=== PATIENT | male | born 1960 | race African-American/Black ===

== ENCOUNTER 2017-02-14 09:49 | Emergency (ER) | payer MEDICAID, OTHER ==
[2017-02-14] MEDS ORDERED: cloNIDine HCl 0.1 MG TAB ONE (10:15)
[2017-02-14 10:32] LABS: #Basophils 0.1 thou/uL (0.0-0.2); #Eosinphils 0.1 thou/uL (0.0-0.7); #Lymphocytes 1.1 thou/uL (1.20-3.40); #Monocytes 0.5 thou/uL (0.11-0.59); #Neutrophils 4.7 thou/uL (1.40-6.50); %Basophils 1.5 % (0.0-1.0); %Eosinophils 0.9 % (0.0-10.0); %Lymphocytes 16.4 % (21.0-51.0); %Monocytes 8.1 % (0.0-10.0); %Neutrophils 73.1 % (42.0-75.0); Hemoglobin 15.3 g/dL (14.0-18.0); Mean Corpuscular HGB CONC 31.7 g/dL (32.0-36.0); Mean Corpuscular Volume 91.3 fl (80.0-94.0); Mean Platelet Volume 9.9 fL (7.4-10.4); Platelet Count 95 thou/uL (130-400); RBC Distribution Width 14.4 % (11.5-14.5); Red Blood Cell (RBC) Count 5.26 mill/uL (4.70-6.10); White Blood Cell (WBC) Count 6.4 thou/uL (4.8-10.8)
[2017-02-14 10:33] LABS: ALT (SGPT) 111 U/L (8-55); AST (SGOT) 133 U/L (5-34); Albumin 4.6 g/dL (3.5-5.0); Alcohol Less than 10 mg/dL (Less than 10); Alkaline Phosphatase 83 U/L (40-150); Anion Gap 16 mmol/L (10-20); BUN (Urea Nitrogen) 8 mg/dL (8.4-25.7); Bilirubin, Total 0.6 mg/dL (0.2-1.2); Calc. Creatinine Clearance 0 mL/min (70-130); Calcium 9.7 mg/dL (7.8-10.44); Carbon Dioxide 28 mmol/L (22-29); Chloride 101 mmol/L (98-107); Estimated GFR-MDRD Greater than 90; Glucose 87 mg/dL (70-105); Protein, Total 7.6 g/dL (6.0-8.3); Sodium 141 mmol/L (136-145)
[2017-02-14 10:34] LABS: CKMB 3.3 ng/mL (0-6.6); Troponin I Less than 0.010 ng/mL (< 0.028)
[2017-02-14 10:43] LABS: PLT Morphology Comment Appears Decreased
== END 2017-02-14 11:20 | disposition home or self-care (01) ==
LOC: BURERS 09:49
DX: F10.10 Alcohol abuse, uncomplicated (principal); R25.1 Tremor, unspecified; I10 Essential (primary) hypertension; F32.9 Major depressive disorder, single episode, unspecified; F17.210 Nicotine dependence, cigarettes, uncomplicated
CPT/HCPCS: 80053; 80307; 82553; 84484; 85025; 93005

== ENCOUNTER 2020-10-07 09:41 | Outpatient (CLI) | payer OTHER ==
--- NOTE | 2020-10-07 11:48 | RAD ---
LUMBAR SPINE 3 VIEWS: DATE: 10/07/2020. FINDINGS: No fracture was seen. There are extensive degenerative changes throughout the lumbar spine with very prominent osteophytes. Disk space narrowing is present at L4-L5 and L5-S1 with sclerosis and irregu larity of the end plates. Some facet arthritis is indicated. L5 vertebra is somewhat sclerotic, but I believe it is just on the basis of degenerative change. The SI joints appear normal. The aorta a nd proximal iliac arteries are densely calcified. Some calcifications are seen over the kidneys, veronica ecially on the right. I cannot tell if these are calculi or calcified vessels. IMPRESSION: 1. Very extensive degenerative changes of the lumbar spine, particularly in the lower levels. MRI w ould be best at determining if there was any impingement. 2. Severe arteriosclerosis. POS: HOME
== END 2020-10-07 09:42 | disposition home or self-care (01) ==
LOC: BURRAD 09:41
PROVIDERS: ATTEND Physician Assistant
DX: R20.2 Paresthesia of skin (principal); M47.816 Spondylosis without myelopathy or radiculopathy, lumbar region; I70.0 Atherosclerosis of aorta; N28.89 Other specified disorders of kidney and ureter
CPT/HCPCS: 72100

== ENCOUNTER 2021-01-03 14:35 | Emergency (ER) | payer OTHER ==
[2021-01-03] MEDS ORDERED: Iopamidol 370 76% 100 ML VIAL ONE (14:42)
[2021-01-03 15:01] LABS: INR-International Normal Ratio 0.9; PTT 24.3 sec (22.9-36.1); Prothrombin Time 12.2 sec (12.0-14.7)
[2021-01-03 15:11] LABS: ALT (SGPT) 16 U/L (8-55); AST (SGOT) 15 U/L (5-34); Albumin 4.9 g/dL (3.5-5.0); Alkaline Phosphatase 103 U/L (40-110); Anion Gap 18 mmol/L (10-20); BUN (Urea Nitrogen) 19 mg/dL (8.4-25.7); Bilirubin, Total 0.6 mg/dL (0.2-1.2); CK (CPK) 358 U/L (30-200); Calc. Creatinine Clearance 0 mL/min (70-130); Calcium 9.9 mg/dL (7.8-10.44); Carbon Dioxide 30 mmol/L (22-29); Chloride 96 mmol/L (98-107); Globulin 3.6 g/dL (2.4-3.5); Glucose 110 mg/dL (70-105); Potassium 3.8 mmol/L (3.5-5.1); Protein, Total 8.5 g/dL (6.0-8.3); Sodium 140 mmol/L (136-145)
[2021-01-03 15:12] LABS: #Basophils 0.2 thou/uL (0.0-0.2); #Monocytes 1.2 thou/uL (0.11-0.59); #Neutrophils 11.1 thou/uL (1.40-6.50); %Eosinophils 0.1 % (0.0-10.0); %Lymphocytes 19.3 % (21.0-51.0); %Monocytes 7.7 % (0.0-10.0); %Neutrophils 71.9 % (42.0-75.0); Hemoglobin 17.7 g/dL (14.0-18.0); Mean Corpuscular HGB CONC 31.1 g/dL (32.0-36.0); Mean Platelet Volume 9.1 fL (7.4-10.4); Platelet Count 234 thou/uL (130-400); RBC Distribution Width 12.8 % (11.5-14.5); Red Blood Cell (RBC) Count 6.53 mill/uL (4.70-6.10); White Blood Cell (WBC) Count 15.5 thou/uL (4.8-10.8)
[2021-01-03 15:15] LABS: Base Excess-Venous 3.6 mmol/L (-2.0 to 3.0); Bicarbonate (HCO3v) 31.9 mmol/L (22.0-28.0); CO2 Tension (PvCO2) 58.1 mmHg (42.0-51.0); Calcium, Ionized 1.08 mmol/L (1.15-1.33); Chloride 98 mmol/L (98-107); Hemoglobin - Calc 20.4 g/dL (14.0-18.0); Potassium 4.1 mmol/L (3.5-5.1); Sodium 138 mmol/L (138-145); T. Carbon Dioxide 33.6 mmol/L (22.0-28.0)
[2021-01-03 15:25] LABS: Acetaminophen Less than 6.0 mcg/mL (10.0-30.0); Alcohol Less than 10 mg/dL (Less than 10); Salicylate Less than 8.0 mg/dL (15.0-30.0)
[2021-01-03] MEDS ORDERED: Aspirin 300 MG Suppository ONE (15:48)
== END 2021-01-03 16:15 | disposition short-term general hospital (02) ==
LOC: BURERS 14:35
DX: I63.9 Cerebral infarction, unspecified (principal); R47.01 Aphasia; R29.810 Facial weakness; I10 Essential (primary) hypertension; F17.210 Nicotine dependence, cigarettes, uncomplicated
CPT/HCPCS: 36416; 70450; 70496; 70498; 71045; 80053; 80307; 82330; 82550; 82803; 84443; 84484; 85025; 85610; 85730; 93005; Q9967

== ENCOUNTER 2025-07-28 08:14 | Emergency (ER) | payer MEDICAID ==
[2025-07-28 09:41] LABS: ALT (SGPT) 29 U/L (Less than 45); AST (SGOT) 22 U/L (11-34); Albumin 3.9 g/dL (3.1-4.5); Alkaline Phosphatase 90 U/L (40-110); Anion Gap 15 mmol/L (10-20); BUN (Urea Nitrogen) 9 mg/dL (8.4-25.7); Bilirubin, Total 0.6 mg/dL (0.3-1.2); Calc. Creatinine Clearance 0 mL/min (70-130); Calcium 9.3 mg/dL (7.8-10.44); Carbon Dioxide 28 mmol/L (23-31); Chloride 103 mmol/L (98-107); Globulin 3.0 g/dL (2.4-3.5); Glucose 134 mg/dL (80-115); Potassium 4.1 mmol/L (3.5-5.1); Sodium 142 mmol/L (136-145)
[2025-07-28 09:43] LABS: #Basophils 0.0 thou/uL (0.0-0.2); #Eosinophils 0.6 thou/uL (0.0-0.7); #Lymphocytes 1.5 thou/uL (1.20-3.40); #Monocytes 0.9 thou/uL (0.11-0.59); #Neutrophils 6.1 thou/uL (1.40-6.50); %Basophils 0.5 % (0.0-1.0); %Eosinophils 6.3 % (0.0-10.0); %Lymphocytes 16.8 % (21.0-51.0); %Monocytes 9.5 % (0.0-10.0); %Neutrophils 66.9 % (42.0-75.0); Hematocrit 40.5 % (42.0-52.0); Hemoglobin 14.0 g/dL (14.0-18.0); Mean Corpuscular Hemoglobin 26.7 pg (27.0-31.0); Mean Corpuscular Volume 77.0 fl (78.0-98.0); Platelet Count 163 10x3/uL (130-400); Red Blood Cell (RBC) Count 5.26 mill/uL (4.70-6.10); White Blood Cell (WBC) Count 9.1 10x3/uL (4.8-10.8)
== END 2025-07-28 13:04 | disposition short-term general hospital (02) ==
LOC: BURERS 08:14
DX: S90.822A Blister (nonthermal), left foot, initial encounter (principal); R60.0 Localized edema; R79.89 Other specified abnormal findings of blood chemistry; E11.9 Type 2 diabetes mellitus without complications; E78.5 Hyperlipidemia, unspecified; I10 Essential (primary) hypertension; F17.210 Nicotine dependence, cigarettes, uncomplicated; Z86.73 Personal history of transient ischemic attack (TIA), and cerebral infarction without residual deficits; Z79.82 Long term (current) use of aspirin; Z79.84 Long term (current) use of oral hypoglycemic drugs; Z79.899 Other long term (current) drug therapy; X58.XXXA Exposure to other specified factors, initial encounter
CPT/HCPCS: 36415; 80053; 85025; 85379; 96365; J3490